=== PATIENT | female | born 1965 | race Caucasian/White ===

== ENCOUNTER 2017-12-19 16:37 | Emergency (ER) | payer MEDICAID ==
[~2017-12-19] VITALS: Ht 165.1 cm; Wt 50.0 kg
[~2017-12-19 16:37] MED LIST: ESTR1PAT TD; MILN100T PO; PREG75CA30 PO; VAL5T PO
[2017-12-19] MEDS ORDERED: normal saline 1000ML IV soln IVB ONE ×2 (17:30→18:20)
[2017-12-19 17:48] LABS: BASOPHILS % (AUTO) 0.3 % (0-1); EOSINOPHILS # (AUTO) 0.1 X10'3 (0-0.9); EOSINOPHILS % (AUTO) 0.8 % (0-6); HEMATOCRIT 43.8 % (35.0-45.0); HEMOGLOBIN 14.9 g/dl (12.0-16.0); MEAN CORPUSCULAR HEMOGLOBIN 30.5 PG (27.0-31.0); MEAN CORPUSCULAR HGB CONC 34.1 % (33.0-36.5); MEAN CORPUSCULAR VOLUME 89.5 FL (78-98); MEAN PLATELET VOLUME 8.6 FL (7.4-10.4); MONOCYTES # (AUTO) 0.6 X10'3 (0-0.9); MONOCYTES % (AUTO) 3.8 % (2-12); NEUTROPHILS # (AUTO) 10.6 X10'3 (1.8-7.7); NEUTROPHILS % (AUTO) 69.1 % (42-75); PLATELET COUNT 262 X10'3 (140-440); RED CELL DISTRIBUTION WIDTH 14.3 % (11.5-14.5); WHITE BLOOD COUNT 15.4 X10'3 (4.5-11.0)
[2017-12-19 18:02] LABS: ALANINE AMINOTRANSFERASE 88 U/L (12-78); ALBUMIN 3.8 G/DL (3.4-5.0); ALBUMIN/GLOBULIN RATIO 1.1 (1.1-1.5); ALKALINE PHOSPHATASE 63 IU/L (46-116); ANION GAP 8 (8-16); ASPARTATE AMINO TRANSFERASE 36 U/L (10-37); BILIRUBIN,TOTAL 0.7 MG/DL (0.1-1.0); BLOOD UREA NITROGEN 29 MG/DL (7-18); BUN/CREATININE RATIO 14.6 (6.6-38.0); CALCIUM 8.9 MG/DL (8.5-10.1); CHLORIDE 107 MMOL/L (99-107); CREATININE 1.99 MG/DL (0.40-0.90); GLUCOSE 119 MG/DL (70-104); POTASSIUM 4.6 MMOL/L (3.5-5.1); SODIUM 140 MMOL/L (135-145); TOTAL CARBON DIOXIDE 25.4 MMOL/L (24-32); TOTAL PROTEIN 7.3 G/DL (6.4-8.2); eGFR 26 ML/MIN
[2017-12-19 19:51] LABS: CLARITY,URINE CLEAR (Clear); COLOR,URINE STRAW (Yellow); GLUCOSE, URINE NEGATIVE (Neg); KETONES,URINE NEGATIVE (Neg); LEUKOCYTE ESTERASE ,URINE NEGATIVE (Neg); NITRITES, URINE NEGATIVE (Neg); OCCULT BLOOD,URINE NEGATIVE (Neg); PH,URINE 5.5 (4.8-8.0); PROTEIN,URINE NEGATIVE (Neg); UROBILINOGEN,URINE 0.2 E.U/dL (0.2-1.0)
[2017-12-19 19:54] LABS: UA COLLECTION TYPE CLN CATCH MIDSTREAM
[2017-12-19] MEDS ORDERED: acetaminophen 325mg tablet PO ONE (21:00)
[2017-12-19 21:40] VITALS: BP 95/66
== END 2017-12-19 21:41 | disposition home or self-care (01) ==
LOC: ER 16:38
DX: I95.1 Orthostatic hypotension (principal); G89.29 Other chronic pain; M10.9 Gout, unspecified; M79.7 Fibromyalgia; Z90.49 Acquired absence of other specified parts of digestive tract; Z90.710 Acquired absence of both cervix and uterus
CPT/HCPCS: 36415; 80053; 81003; 84484; 85025; 93005; 99285; J7030

== ENCOUNTER 2022-10-30 07:58 | Outpatient (CLI) | payer MEDICAID ==
[2022-10-30] VITALS (8 sets, daily range): BP systolic 47–154; BP diastolic 26–77
[~2022-10-30 07:58] MED LIST changes: +DIAZ5TAB22 PO; -VAL5T PO
== END 2022-10-30 23:59 | disposition home or self-care (01) ==
LOC: CARD DIAG 07:58
PROVIDERS: ATTEND Internal Medicine Cardiovascular Disease
DX: R42 Dizziness and giddiness (principal); I95.9 Hypotension, unspecified
CPT/HCPCS: 93660

== ENCOUNTER 2024-08-24 14:20 | Outpatient (CLI) | payer MEDICAID ==
[2024-08-24 14:41] LABS: ALBUMIN 3.7 G/DL (3.4-5.0); ANION GAP 10 (8-16); BLOOD UREA NITROGEN 40 MG/DL (7-18); BUN/CREATININE RATIO 25.8 (10.0-20.0); CALCIUM 8.9 MG/DL (8.5-10.1); CHLORIDE 107 MMOL/L (99-107); CREATININE 1.55 MG/DL (0.40-0.90); GLUCOSE 74 MG/DL (70-104); SODIUM 141 MMOL/L (135-145); TOTAL CARBON DIOXIDE 24.1 MMOL/L (24-32); eGFR 34 ML/MIN
== END 2024-08-24 23:59 | disposition home or self-care (01) ==
LOC: MRI 14:20
PROVIDERS: ATTEND Podiatrist Foot & Ankle Surgery
DX: S93.432A Sprain of tibiofibular ligament of left ankle, initial encounter (principal); S93.692A Other sprain of left foot, initial encounter; M21.6X2 Other acquired deformities of left foot; M25.475 Effusion, left foot; M76.62 Achilles tendinitis, left leg; M84.476A Pathological fracture, unspecified foot, initial encounter for fracture; M87.073 Idiopathic aseptic necrosis of unspecified ankle; Z98.890 Other specified postprocedural states; X58.XXXA Exposure to other specified factors, initial encounter; Y93.89 Activity, other specified; Y92.89 Other specified places as the place of occurrence of the external cause; Y99.8 Other external cause status
CPT/HCPCS: 36415; 73721; 80048

== ENCOUNTER 2024-09-11 11:41 | Outpatient (CLI) | payer MEDICAID | END 2024-09-11 23:59 | disposition home or self-care (01) | LOC: RAD 11:41 | PROVIDERS: ATTEND Specialist/Technologist Athletic Trainer | DX: M84.475A Pathological fracture, left foot, initial encounter for fracture (principal); M25.475 Effusion, left foot; M87.075 Idiopathic aseptic necrosis of left foot; M24.08 Loose body, other site; M87.875 Other osteonecrosis, left foot | CPT/HCPCS: 73700 ==

== ENCOUNTER 2025-01-21 15:19 | Outpatient (CLI) | payer MEDICAID ==
--- NOTE | 2025-01-21 18:01 | RADIOLOGY REPORT ---
EXAM: CT CT LOWER EXTREMITY INDICATION: IDIOPATHIC ASEPTIC NECROSIS OF UNSPECIFIED ANKLE TECHNIQUE: Axial images of bilateral lower extremities have been obtained along with coronal and sagi ttal reformatted images. All CT scans at this facility use dose modulation, iterative reconstruction, and/or weight based dosing when appropriate to reduce radiation dose to as low as reasonably achieva ble. COMPARISON: CT CT LOWER EXTREMITY on DOS: 09/11/24 FINDINGS: BONES: Question nonunited fracture of the posterior talus with subsequent flattening of the talar hea d. Subsequent osseous remodeling. Prior hardware tracts along the posterior calcaneus. Hardware sharmila cement of the midfoot without evidence of loosening. Surrounding significant tibiotalar joint effusio n with likely thickening and scattered intra-articular loose bodies. MUSCLES: No abnormal attenuation. JOINT SPACES: Small tibiotalar joint effusion. OTHER: None. IMPRESSION: 1. Favor nonunited fracture of the left posterior talus with subsequent osseous remodeling and increa sed sclerosis of the talus with underlying cystic change. 2. Superimposed avascular necrosis not excluded given the increased sclerosis. 3. Surrounding tibiotalar joint effusion with soft tissue thickening and intra-articular bodies.
== END 2025-01-21 23:59 | disposition home or self-care (01) ==
LOC: RAD 15:19
PROVIDERS: ATTEND Podiatrist Foot & Ankle Surgery
DX: M84.472A Pathological fracture, left ankle, initial encounter for fracture (principal); M25.472 Effusion, left ankle; M87.073 Idiopathic aseptic necrosis of unspecified ankle
CPT/HCPCS: 73700